=== PATIENT | male | born 1965 | race Caucasian/White ===

== ENCOUNTER 2023-01-31 06:47 | Day surgery (SDC) | payer OTHER ==
[2023-01-24 11:31] LABS: Absolute Lymphocytes (CBC) 1.9 K/uL (0.7-4.9); Lymphocytes % 28.3 % (15.3-44.8); MCV 95.9 fL (80-100); MPV 8.2 fL (7.6-11.3); Platelets 208 thou/uL (152-406); RBC Red Blood Cell Count 4.48 M/uL (4.33-5.43)
--- NOTE | 2023-01-24 11:37 | RAD REPORT ---
EXAM DESCRIPTION: RAD - Chest Pa And Lat (2 Views) - 01/24/2023 11:32 am CLINICAL HISTORY: Pre op pending mass removals Chest pain. COMPARISON: Chest Pa And Lat (2 Views) dated 09/09/2018; CHEST PA AND LAT 2 VIEW dated 12/21/2008 FINDINGS: The lungs are clear. The heart is normal in size. No displaced fractures. IMPRESSION: No acute or concerning finding suspected.
[2023-01-24 11:45] LABS: Potassium 3.9 mEq/L (3.5-5.1)
--- NOTE | 2023-01-28 11:51 | EKG ---
Test Date: 2023-01-24 Test Time: 11:49:24 Box Truck Washer: SHARAN MEASUREMENT RESULTS: Intervals: Rate: 61 NC: 140 QRSD: 82 QT: 398 QTc: 400 [place]: P: 56 NC: 140 QRS: 60 T: 51 INTERPRETIVE STATEMENTS: Normal sinus rhythm Normal ECG No previous ECG available for comparison Electronically Signed On 01-28-23 11:47:17 ONCOLOGY RN by Jared Gomez
[2023-01-31] MEDS ORDERED: Ringers Lactate 1,000 ML IV ONE (06:59)
[2023-01-31] MEDS ORDERED: CEFAZOLIN SODIUM 2 GM/VIAL ONE (06:59)
[2023-01-31] MEDS ORDERED: BUPIVACAINE 0.5% PF 10 ML VIAL ONE (07:34)
[2023-01-31] MEDS ORDERED: ONDANSETRON 4 MG/2 ML VIAL ONE (08:20)
[2023-01-31] MEDS ORDERED: dexAMETHasone 10 MG/ML VIAL ONE (08:20)
[2023-01-31] MEDS ORDERED: MIDAZOLAM HCL 2 MG/2 ML INJ ONE (08:20)
[2023-01-31] MEDS ORDERED: KETOROLAC 30 MG/ML INJ ONE (08:20)
[2023-01-31] MEDS ORDERED: propofoL 200 MG/20 ML VIAL IV ONE (08:20)
[2023-01-31] MEDS ORDERED: LIDOCAINE 2% MPF 5 ML VIAL ONE (08:20)
[2023-01-31] MEDS ORDERED: FENTANYL CITR 100 MCG/2 ML ONE (08:21)
[2023-01-31] MEDS ORDERED: NS 0.9% VIAL 20 ML ONE (08:56)
[2023-01-31] MEDS ORDERED: NS 0.9% VIAL 10 ML ONE (09:00)
--- NOTE | 2023-01-31 10:03 | P.OP ---
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 General anesthesia begun. Patient placed in the right lateral position. Patient prepped and draped in the usual sterile fashion. Marc[place] 0.5% infiltrated locally for postop pain control. A 5 cm incision made over the right back mass. Subcutaneous tissue divided and bleeding controlled cautery. Deep to the subcutaneous tissue a 4 x 4 cm lipoma identified. Entire lipoma excised and sent to pathology as specimen. Bleeding controlled cautery. 2-0 chromic used to approximate subcutaneous tissue. 4-0 nylon used to close skin. Sterile dressing applied. 3 cm incision made on the left forearm. Subcutaneous tissue divided and bleeding controlled cautery. 2 x 2 cm lipoma identified and excised. Wound irrigated and bleeding controlled cautery. 3-0 chromic used to close the subcutaneous tissue. 5-0 nylon used to close the skin. Sterile dressing applied. A 2.5 cm incision made on the base of the right great toe. Subcutaneous tissue divided. This this appeared to be a fibroma. So ellipse of skin approximately 3 x 1 cm incision made. The mass excised and sent to pathology as specimen. Wound irrigated bleeding controlled cautery. 3-0 chromic used to approximate subcutaneous tissue. 4-0 nylon used to close skin. Sterile dressing applied. Patient awakened and taken to recovery room in good general condition. CC:
[2023-01-31] MEDS ORDERED: HYDROCODONE/APAP 7.5/325 MG TAB PO PRN (10:06)
[2023-01-31 10:18] VITALS: O2SAT 100
[2023-01-31 10:46] VITALS: TEMP 97
[2023-01-31 12:43] VITALS: BP 114/71
== END 2023-01-31 11:30 | disposition home or self-care (01) ==
LOC: OR 06:47
PROVIDERS: ATTEND Surgery
PROC: 0JBH0ZZ Excision of Left Lower Arm Subcutaneous Tissue and Fascia, Open Approach (ICD-10-PCS; 2023-01-31)
PROC: 0JBQ0ZZ Excision of Right Foot Subcutaneous Tissue and Fascia, Open Approach (ICD-10-PCS; 2023-01-31)
PROC: 0JB70ZZ Excision of Back Subcutaneous Tissue and Fascia, Open Approach (ICD-10-PCS; principal; 2023-01-31 08:00)
DX: D17.1 Benign lipomatous neoplasm of skin and subcutaneous tissue of trunk (principal); D17.22 Benign lipomatous neoplasm of skin and subcutaneous tissue of left arm; L90.5 Scar conditions and fibrosis of skin
CPT/HCPCS: 93005; 85025; 80048; 36415; 88304; 88305; 71046; 11404; 11402; 11422; A4216 ×2; J2704; J2001; J2250; J3010; J1100; J2405; J7120